=== PATIENT | female | born 1965 | race Caucasian/White ===

== ENCOUNTER → 2021-07-31 | Day surgery (SDC) | payer OTHER ==
[~2021-07-31] VITALS: Ht 165.1 cm; Wt 100.0 kg
[~2021-07-31] MED LIST: ASPIRIN EC81 MG PO; IBUPROFEN800 MG PO; MELOXICAM15 MG PO; METFORMIN HCL500 M3 PO; PERCOCET 5-3251 EACH PO; PRINIVIL10 MG PO; VITAMIN D1000 UNIT PO
[2021-07-31 08:04] LABS: HCT 33.2 % (37.0-47.0); HGB 10.7 g/dl (12.5-16.0); MCH 30.2 pg (25.0-31.0); MCHC 32.2 g/dL (32.0-36.0); MCV 93.8 fL (78.0-100.0); MPV 10.4 fL (6.0-9.5); RBC 3.54 M/uL (4.20-5.40); RDW 14.1 % (11.5-14.0); WBC 11.4 K/uL (4.0-10.5)
[2021-07-31 08:16] LABS: ALBUMIN 3.7 g/dL (3.4-5.0); BILIRUBIN - TOTAL 0.4 mg/dL (0.2-1.0); BUN/CREAT RATIO (CALC) 17.3 RATIO; CREATININE 0.81 mg/dL (0.51-0.95); GLOBULIN (CALCULATION) 3.6 g/dL; TOTAL PROTEIN 7.3 g/dL (6.4-8.2)
--- NOTE | 2021-07-31 11:30 | NUR ---
PATIENT WAS TAKEN TO MEET RIDE AND WAS TOLD THAT HER RIDE WAS STUCK IN TRAFFIC. PATIENT WAS RETURNED TO THE UNIT AND REMAINED IN LOCKED WHEELCHAIR TO AWAIT RIDE
== END | disposition home or self-care (01) ==
LOC: FAS 07-24 08:30
PROVIDERS: Surgery
DX: D12.6 Benign neoplasm of colon, unspecified (principal); K29.61 Other gastritis with bleeding; K25.4 Chronic or unspecified gastric ulcer with hemorrhage; K57.31 Diverticulosis of large intestine without perforation or abscess with bleeding; I10 Essential (primary) hypertension; D64.9 Anemia, unspecified; E11.9 Type 2 diabetes mellitus without complications; Z79.84 Long term (current) use of oral hypoglycemic drugs
CPT/HCPCS: 36415; 80053; J1610; J2250; J2704; J7120